=== PATIENT | male | born 1940 | race Caucasian/White ===

== ENCOUNTER 2018-09-04 05:25 | Day surgery (SDC) | payer OTHER, BC ==
[~2018-09-04] VITALS: Ht 180.3 cm; Wt 115.2 kg
[~2018-09-04 05:25] MED LIST: ADULT LOW DOSE81 MG PO; ALLERGY10 MG PO; ASPIRIN BUFFER325 M1 PO; ASPIRIN325 PO; BENADRYL25 MG PO; CALCIUM 600 +1 EAC5 PO; CARVEDILOL25 MG PO; CIPROFLOXACIN500 M3 PO; COLACE100 MG PO; COLCHICINE 0.60.6 M1; COREG PO; COUMADIN 5 MG TA5 M1 PO; DICLOFENAC SODI75 MG PO; ENABLEX15 MG PO; FISH OIL 1,001000 M2 PO; FISH OIL 1,2001 EAC2 PO; FLAGYL500 MG PO; FLONASE 0.05%50 MCG NASAL; FUROSEMIDE 40 M40 M1 PO; LASIX 20 MG TAB20 MG PO; LISINOPRIL20 MG PO; LISINOPRIL30 MG PO; LOTRIMIN AF12 GM; LOVAZA1000 MG PO; MAG-OX 400 TAB400 MG PO; MUCINEX1200 MG PO; NEURONTIN 300300 M1 PO; NEXIUM40 MG PO; NIASPAN ER 101000 M1 PO; OMEGA 3 1,0001 EACH PO; POTASSIUM20 PO; TRIAMTERENE-HC1 EAC1 PO; ULORIC40 MG PO; ULORIC80 MG PO; VENTOLIN HFA 1818 GM INH; VITAL JOINT PO; VITAMIN D2000 UNIT PO; VITAMINC500 PO; ZOFRAN 4 MG ORAL4 M1 DIS; ZOFRAN 4 MG ORAL4 MG PO
[2018-09-04 12:00] VITALS: BP 115/77
[2018-09-04 12:34] LABS: CALCIUM 8.6 mg/dL (8.5-10.1); CREATININE 1.9 mg/dL (0.7-1.3); POTASSIUM 3.8 mmol/L (3.5-5.1)
[2018-09-04 12:38] LABS: APTT 26.1 Seconds (24.5-32.8); INR 1.2; PROTIME 12.3 Seconds (9.3-11.4)
--- NOTE | 2018-09-08 06:19 | O ---
[facility] [place] [address] OPERATIVE REPORT Name: BERLIN JON Rob Room #: DEP [facility]..#: [id number] Admission: 09/04/18 Attend Phys: Karel Reed MD Discharge: 09/04/18 Date of : 40 Report #: [id number] THIS REPORT FOR: //name// CC: Pieter Alcantar DO Lisa Keaton Reed DATE OF SERVICE: 09/04/2018 SURGEON: Karel Reed MD HOT WATER HEATER INSTALLER: None. PREOPERATIVE DIAGNOSIS: Nasolacrimal duct obstruction, right side. POSTOPERATIVE DIAGNOSIS: Nasolacrimal duct obstruction, right side. OPERATIONS PERFORMED: 1. Incisional dacryocystorhinostomy. 2. Nasal surgical video endoscopy. 3. Silicone intubation. ANESTHESIA: General. COMPLICATIONS: None. INDICATIONS FOR PROCEDURE: This patient has an acquired nasolacrimal duct obstruction with chronic tearing and discharge. The current procedures are undertaken in order to improve the patient's level of comfort and visual clarity and to reduce the risk of recurrent infection. Informed consent was obtained to include but not limited to the potential risk for loss of vision, bleeding, infection, failure to improve the problem, scarring and the potential need for further surgery. DESCRIPTION OF OPERATION: The patient was taken to the operating room, where general anesthesia was administered. The medial canthal area was then generously infiltrated with 2% Xylocaine with epinephrine mixed with equal parts of 0.75% Marcaine with Wydase. The same anesthetic mixture was then used to anesthetize the lateral wall of the nose. The middle meatus was then packed with Afrin-soaked Cottonoids. The patient was subsequently prepped and draped in the usual sterile fashion. A skin-marking pen was then used to outline an incision over the anterior [address] [address] OPERATIVE REPORT Name: BERLIN JON Room #: DEP [facility] [place].#: [id number] Admission: 09/04/18 Attend Phys: Karel Reed MD Discharge: 09/04/18 Date of : 40 Report #: [id number] lacrimal crest inferiorly in the medial canthal area. The incision was then made with a 15 blade. The dissection was then carried down through the soft tissue until the periosteum was identified. Hemostasis was achieved with diligent monopolar cautery. The periosteum was then incised over the anterior lacrimal crest and then gently reflected laterally out of the lacrimal sac fossa. The lacrimal sac was retracted and the thin bone of the lacrimal sac fossa was gently infractured with a hemostat. Multiple rongeur bites were then used to create an osteotomy that was approximately 1.5 cm in diameter. The nasal mucosa was then injected with the same anesthetic mixture used at the beginning of the case. The nasal mucosa was then incised and an anteriorly hinged nasal mucosal flap made. The flap was drawn out of the field with interrupted 4-0 chromic sutures. The puncta were then dilated with a double-ended punctum dilator. Kaye tubes were then passed into the lacrimal sac and its margins were identified. A large anteriorly hinged lacrimal sac flap was subsequently created. The Kaye tubes were passed into the nose on a groove director transnasally. The anterior lacrimal sac flaps and nasal mucosal flaps were closed with interrupted 4-0 chromic sutures. The nasal surgical video endoscope was then brought into the field. The ostium was inspected and found to not be obstructed by the middle turbinate. The ostium was anterior and inferior to the root of the turbinate. There was no evidence of any septal obstruction of the newly created ostium. The subcutaneous structures around the wound were then closed with multiple interrupted 4-0 chromic sutures. The skin was closed with interrupted 6-0 plain gut sutures. The Kaye tubes were then secured to themselves with 3 square throws. The Kaye tubes were then secured to the lateral wall of the nose with a 5-0 Prolene suture. Antibiotic steroid drops were then placed on the surface of the eye and an antibiotic ointment on the incision. Two eye pads were then taped in place. The patient was transported to the recovery area, having tolerated the procedure well with no anesthetic or operative complications being noted. <ELECTRONICALLY SIGNED> By: Karel Reed MD 09/08/18 [id number] Karel Reed MD /nt
== END 2018-09-04 15:45 | disposition home or self-care (01) ==
LOC: OR 05:25 → TBA 05:25 → OR 09:44
PROVIDERS: Ophthalmology
DX: H04.551 Acquired stenosis of right nasolacrimal duct (principal); I11.0 Hypertensive heart disease with heart failure; I50.9 Heart failure, unspecified; I25.2 Old myocardial infarction; I48.92 Unspecified atrial flutter; M10.9 Gout, unspecified; Z95.5 Presence of coronary angioplasty implant and graft; Z95.1 Presence of aortocoronary bypass graft; Z87.19 Personal history of other diseases of the digestive system; Z90.49 Acquired absence of other specified parts of digestive tract; Z85.51 Personal history of malignant neoplasm of bladder; Z96.643 Presence of artificial hip joint, bilateral; Z87.01 Personal history of pneumonia (recurrent); Z79.01 Long term (current) use of anticoagulants; Z98.890 Other specified postprocedural states; Z79.899 Other long term (current) drug therapy; Z88.6 Allergy status to analgesic agent; Z79.82 Long term (current) use of aspirin
CPT/HCPCS: 50010; 50101; 50386; 50398; 51636; 51777; 56528; 56531; 62110; 62900; 64037; 70005